=== PATIENT | male | born 1980 | race Caucasian/White ===

== ENCOUNTER 2016-12-31 21:30 | Emergency (ER) | payer BC ==
[2016-12-31] MEDS ORDERED: SULFAMETHOXAZOLE/TRIMETHOPRIM 800-160 MG TABLET PO ONE (23:06)
[2016-12-31] MEDS ORDERED: HYDROCODONE/ACETAMINOPHEN 5-325 MG TABLET PO ONE (23:07)
--- NOTE | 2016-12-31 23:07 | ER Document Report ---
ED Hand/Wrist Injury - General Mode of Arrival: Ambulatory Information source: Patient TRAVEL OUTSIDE OF THE [place] IN LAST 30 DAYS: No - HPI Patient complains to provider of: Possible infection to the right hand Injury to: Hand, Index finger Onset: Last week Where: Work Context: Other - see HPI <PORSCHE MONCADA - Last Filed: 12/31/16 23:01> <KATELYN KIMBLE - Last Filed: 12/31/16 23:33> - General Chief Complaint: Hand Injury Stated Complaint: HAND INJURY Notes: 36 year old male with no prior medical problems presents to the ED complaining of a possible right hand infection and pain that started over the past 2 days. Patient reports that he was removing fences last week and cut his right first digit with a kerri nail. Patient denies any arm pain or signs that the infection has spread. Patient reports that yesterday he was able to form a fist , but is unable to today. Patient has cleaned the infected site with hydrogen peroxide recently. Patient received a tetanus shot 1 year ago. (PORSCHE MONCADA) - Related Data Allergies/Adverse Reactions: tramadol [Tramadol] Allergy (Verified 03/14/16 14:32) tramadol HCl [From Ultram] Allergy (Verified 03/14/16 14:32) Past Medical History - General Information source: Patient - Social History Smoking Status: Current Every Day Smoker Chew tobacco use (# tins/day): No Frequency of alcohol use: Occasional Drug Abuse: None Family History: Reviewed & Not Pertinent Patient has suicidal ideation: No Patient has homicidal ideation: No Renal/ Medical History: Denies: Hx Peritoneal Dialysis Musculoskeltal Medical History: Reports Hx Musculoskeletal Trauma Past Surgical History: Reports: Hx Orthopedic Surgery - R thumb, left rotator cuff - Immunizations Immunizations up to date: Yes Hx Diphtheria, Pertussis, Tetanus Vaccination: Yes - 2003 <PORSCHE MONCADA - Last Filed: 12/31/16 23:01> Review of Systems - Review of Systems Constitutional: No symptoms reported EENT: No symptoms reported Cardiovascular: No symptoms reported Respiratory: No symptoms reported Gastrointestinal: No symptoms reported Genitourinary: No symptoms reported Male Genitourinary: No symptoms reported Musculoskeletal: No symptoms reported Skin: See HPI, Other - Right hand pain and swelling secondary to possible infection. Hematologic/Lymphatic: No symptoms reported Neurological/Psychological: No symptoms reported -: Yes All other systems reviewed and negative <PORSCHE MONCADA - Last Filed: 12/31/16 23:01> Physical Exam - General In distress: None - HEENT Eyes: No: Scleral icterus - Respiratory Respiratory status: No respiratory distress Breath sounds: Normal - Cardiovascular Rhythm: Regular Heart sounds: Normal auscultation Murmur: No Pulses: Normal: Radial Normal capillary refill: Yes - Extremities General upper extremity: Other - There is a small scab overlying the dorsal second metacarpal phalangeal joint. There is minimal erythema extending slightly proximal to the mid to distal metacarpal and definitely no fluctuance, only slightly "spongy" noted at the area of injury. There is no evidence of abscess and there is no drainage. Neurovascularly intact distally. The palm of the hand is unaffected. There is no significant pain with passive flexion and extension though he voids pain with flexion at that region. Hand: No evidence of human bite, No evidence of FB. No: Tendon deficit - Neurological Neuro grossly intact: Yes - Skin Skin Moisture: Dry Skin Color: Erythema - Erythema as noted above <KATELYN KIMBLE - Last Filed: 12/31/16 23:33> - Vital signs Vitals: Temp Pulse Resp BP Pulse Ox 98.4 F 92 16 118/75 95 12/31/16 21:37 12/31/16 21:37 12/31/16 21:37 12/31/16 21:37 12/31/16 21:37 Course <PORSCHE MONCADA - Last Filed: 12/31/16 23:01> <KATELYN KIMBLE - Last Filed: 12/31/16 23:33> - Re-evaluation Re-evalutation: 12/31/16 23:30 I discussed with the patient findings are consistent with a mild cellulitis at this point originating from a very superficial wound over the second dorsal joint. There is no infection involving the palmar aspect or flexor tendons. There is really only minimal warmth and redness and no abscess at this point. I instructed him to return in 48 hours for a recheck of his wound or to return sooner if he is worsening otherwise. He voices understanding. (KATELYN KIMBLE) - Vital Signs Vital signs: Temp Pulse Resp BP Pulse Ox 98.4 F 92 16 118/75 95 03/21/17 21:37 12/31/16 21:37 12/31/16 21:37 12/31/16 21:37 12/31/16 21:37 Discharge <PORSCHE MONCADA - Last Filed: 12/31/16 23:01> <HAKATELYN - Last Filed: 12/31/16 23:33> - Discharge Clinical Impression: Cellulitis of hand, right Condition: Good Disposition: HOME, SELF-CARE Instructions: Cellulitis ([facility]) Additional Instructions: Please ensure you return in the next 48 hours for a recheck of the hand. Return sooner if you are developing streaking redness up your arm, fever or worsening otherwise. Start the antibiotics in the morning. Cellulitis You have an infection of your skin and underlying soft tissues called cellulitis. This is due to bacteria, which can enter through any break in the skin, or even through an irritated hair follicle. Untreated, cellulitis will usually worsen. Antibiotics are required. Usually, warm packs or warm soaks, and elevation of the infected area are recommended. You should start getting better within 24 to 36 hours. Most infections respond quickly to the right medication. Follow-up care is important, however, to check for abscess (boil) formation, unsuspected foreign body, or resistant infection. If you develop fever, chills, or if the area of infection is becoming rapidly more swollen or painful, call the doctor at once. Prescriptions: Hydrocodone/Acetaminophen [[place] 5-325 mg Tablet] 1 tab PO Q4H PRN #7 tablet PRN Reason: Sulfamethoxazole/Trimethoprim [Sulfamethoxazole-Tmp Ds Tablet] 2 each PO BID # 28 tablet Forms: Special Work Note Scribe Documentation - Scribe Written by Filemon:: Filemon Torres, 12/31/2016 [id number] acting as scribe for :: Ha <PORSCHE MONCADA - Last Filed: 12/31/16 23:01>
[2017-01-01 00:13] VITALS: BP 110/66
== END 2016-12-31 23:50 | disposition home or self-care (01) ==
LOC: ER 21:30
DX: L03.113 Cellulitis of right upper limb (principal); F17.200 Nicotine dependence, unspecified, uncomplicated
CPT/HCPCS: 99283

== ENCOUNTER 2017-01-01 18:22 | Emergency (ER) | payer BC ==
[2017-01-01 18:41] VITALS: BP 100/61
--- NOTE | 2017-01-01 18:46 | ER Document Report ---
ED Medical Screen (RME) - General Stated Complaint: HAND SWELL Notes: 36 yo male c/o pain and swelling to right hand. pt was seen in ED last pm for same. Dx with cellulitis. pt was not able to get antbiotic filled today. c/o increased swelling to right dorsal hand over 1st MCPJ with hemorrhagic blister. + soft tissue swelling, erythema and warmth. TRAVEL OUTSIDE OF THE [place] IN LAST 30 DAYS: No - Related Data Allergies/Adverse Reactions: tramadol [Tramadol] Allergy (Verified 03/14/16 14:32) tramadol HCl [From Ultram] Allergy (Verified 03/14/16 14:32) Past Medical History Renal/ Medical History: Denies: Hx Peritoneal Dialysis Musculoskeltal Medical History: Reports Hx Musculoskeletal Trauma Past Surgical History: Reports: Hx Orthopedic Surgery - R thumb, left rotator cuff - Immunizations Immunizations up to date: Yes Hx Diphtheria, Pertussis, Tetanus Vaccination: Yes - 2003 Physical Exam - Vital signs Vitals: Temp Pulse Resp BP Pulse Ox 98.2 F 81 18 100/61 98 01/01/17 18:40 01/01/17 18:40 01/01/17 18:40 01/01/17 18:40 01/01/17 18:40 Course - Vital Signs Vital signs: Temp Pulse Resp BP Pulse Ox 98.2 F 81 18 100/61 98 01/01/17 18:40 01/01/17 18:40 01/01/17 18:40 01/01/17 18:40 01/01/17 18:40
[2017-01-01 19:13] LABS: ABSOLUTE BASOPHILS # (AUTO) 0.1 10^3/uL (0.0-0.2); ABSOLUTE EOSINOPHILS # (AUTO) 0.2 10^3/uL (0.0-0.6); ABSOLUTE NEUT (AUTO) 12.7 10^3/uL (1.7-8.2); BASOPHILS % (AUTO) 0.4 % (0-2); EOSINOPHILS % (AUTO) 1.2 % (0-6); HEMATOCRIT 38.2 % (37.9-51.0); HEMOGLOBIN 12.9 g/dL (13.5-17.0); HGB HCT DIFFERENCE 0.5; LYMPHOCYTES % (AUTO) 17.5 % (13-45); MEAN CORPUSCULAR HGB CONC 33.7 g/dL (32.0-36.0); MEAN CORPUSCULAR VOLUME 86 fl (80-97); RED BLOOD COUNT 4.43 10^6/uL (4.35-5.55); RED CELL DISTRIBUTION WIDTH 12.9 % (11.5-14.0); SEGMENTED NEUTROPHILS % (AUTO) 74.9 % (42-78)
== END 2017-01-01 20:18 | disposition left against medical advice (07) ==
LOC: ER 18:22
DX: L03.113 Cellulitis of right upper limb (principal); Z53.20 Procedure and treatment not carried out because of patient's decision for unspecified reasons; Z88.5 Allergy status to narcotic agent
CPT/HCPCS: 36415; 85025; 99281

== ENCOUNTER 2018-07-11 13:30 | Emergency (ER) | payer BC, OTHER ==
[2018-07-11 13:42] VITALS: BP 111/69
--- NOTE | 2018-07-11 14:02 | ER Document Report ---
ED General - General Chief Complaint: Back Pain Stated Complaint: BACK PAIN Time Seen by Provider: 07/11/18 14:01 Notes: Patient is a 37-year-old male that presents to the emergency department for chief complaint of low back pain. Patient reports that he had worsening of his back pain yesterday, described as aching sensation, that would radiate down both his legs, denied any associated numbness, weakness, tingling. He describes his pain at its worst is a 9 out of 10, is an aching sensation, that was constant and was worse with movements, he did receive 50 mcg of fentanyl by EMS which did help with his pain. Denies any urinary retention, stool incontinence, saddle anesthesias or paresthesias. He states that it did somewhat improve after taking naproxen, but he tried walking again today, and after he got home, the pain was so severe that he decided to call EMS to bring him to the emergency department. Today denies any radiation of his pain. He does have a history of degenerative disc disease, as well as scoliosis. Past Medical History: Degenerative disc disease, scoliosis Past Surgical History: Rotator cuff surgery Social History: Admits to smoking cigarettes daily, denies alcohol or illicit drug use. Family History: Reviewed and noncontributory for presenting illness Allergies: Reviewed, see documented allergy list. REVIEW OF SYSTEMS: Unless otherwise stated in this report the patient's positive and negative responses for review of systems for constitutional, eyes, ENT, cardiovascular, respiratory, gastrointestinal, neurological, genitourinary, musculoskeletal, and integumentary systems and related systems to the presenting problem are either as stated in the HPI or were not pertinent or were negative for the symptoms and/or complaints related to the presenting medical problem. PHYSICAL EXAMINATION: Vital signs reviewed, nursing noted reviewed. GENERAL: Well-appearing, well-nourished and in no acute distress. HEAD: Atraumatic, normocephalic. EYES: Eyes appear normal, extraocular movements intact, sclera anicteric, conjunctiva are normal. ENT: nares patent, oropharynx clear without exudates. Moist mucous membranes. NECK: Normal range of motion, supple without lymphadenopathy LUNGS: Breath sounds clear to auscultation bilaterally and equal. No wheezes rales or rhonchi. HEART: Regular rate and rhythm without murmurs ABDOMEN: Soft, nontender, normoactive bowel sounds. No rebound, guarding, or rigidity. No masses appreciated. EXTREMITIES: Nontender, good range of motion, no pitting or edema. Back: No midline tenderness to the thoracic or lumbar spine, there is paraspinal tenderness bilaterally in the lumbar spine, and appears to be muscle spasm in this area as well. NEUROLOGICAL: No focal neurological deficits. Moves all extremities spontaneously Motor and sensory grossly intact on exam. Excellent strength, in all extremities, +5/5 distally, patellar and Achilles tendons reflexes are +2/4 bilaterally. PSYCH: Normal mood, normal affect. SKIN: Warm, Dry, normal turgor, no rashes or lesions noted on exposed skin TRAVEL OUTSIDE OF THE [place] IN LAST 30 DAYS: No - Related Data Allergies/Adverse Reactions: tramadol [Tramadol] Allergy (Verified 03/14/16 14:32) tramadol HCl [From Ultram] Allergy (Verified 03/14/16 14:32) Past Medical History - Social History Smoking Status: Current Every Day Smoker Chew tobacco use (# tins/day): No Frequency of alcohol use: None Drug Abuse: None Family History: Reviewed & Not Pertinent Patient has suicidal ideation: No Patient has homicidal ideation: No Neurological Medical History: Reports: Hx Seizures Renal/ Medical History: Denies: Hx Peritoneal Dialysis Musculoskeletal Medical History: Reports Hx Musculoskeletal Trauma Psychiatric Medical History: Reports: Hx Attention Deficit Hyperactivity Disorder, Hx Depression - PTSD Past Surgical History: Reports: Hx Orthopedic Surgery - R thumb, left rotator cuff - Immunizations Immunizations up to date: Yes Hx Diphtheria, Pertussis, Tetanus Vaccination: Yes - 2003 Physical Exam - Vital signs Vitals: Temp Pulse Resp BP Pulse Ox 98.2 F 79 16 111/69 99 07/11/18 13:38 07/11/18 13:38 07/11/18 13:38 07/11/18 13:38 07/11/18 13:38 Course - Re-evaluation Re-evalutation: Patient seen and examined vital signs reviewed. Patint was evaluated and treated as appropriate for the patient's presenting symptoms and complaint, with consideration of any critical or life threatening conditions that may be associated with their obtained history and exam as noted above. Given that the patient did not have any acute injury, I do not feel imaging is needed at this time, he does not have any acute neurological findings or symptoms either. Patient was treated with IV fentanyl, Robaxin, and Toradol The patient was re-evaluated and was much improved Evaluation was most consistent with lumbar strain Plan of care was discussed with the patient at this point, after careful consideration I feel that that patient can be discharged from the emergency department, the patient was educated treatments and reasons to return to the emergency department based on their presumed diagnosis as noted above, they were advised to followup with a primary care physician in 2-3 days. Patient was agreeable to plan of care. *Note is created using voice recognition software and may contain spelling, syntax or grammatical errors. - Vital Signs Vital signs: Temp Pulse Resp BP Pulse Ox 98.2 F 79 16 111/69 99 07/11/18 13:38 07/11/18 13:38 07/11/18 13:38 07/11/18 13:38 07/11/18 13:38 Discharge - Discharge Clinical Impression: Back pain Qualifiers: Back pain location: low back pain Chronicity: unspecified Back pain laterality : bilateral Sciatica presence: without sciatica Qualified Code(s): M54.5 - Low back pain Disposition: HOME, SELF-CARE Instructions: Low Back Pain ([facility]) Additional Instructions: Please follow-up with orthopedics, take medications as prescribed. Prescriptions: Methocarbamol [Robaxin 750 mg Tablet] 750 mg PO Q8H PRN #15 tablet PRN Reason: low back pain Prednisone [Deltasone 20 mg Tablet] 2 tab PO DAILY 5 Days #10 tablet Referrals: LAURA SMITH MD [ACTIVE STAFF] - Follow up as needed (orthopedics )
[2018-07-11] MEDS ORDERED: METHOCARBAMOL INJ/PF 1000 MG/10 ML SDV IV ONE (14:19)
[2018-07-11] MEDS ORDERED: FENTANYL CITRATE INJ/PF 100 MCG/2 ML AMPUL IV ONE (14:19)
[2018-07-11] MEDS ORDERED: KETOROLAC TROMETHAMINE INJ/PF 30 MG/1 ML SDV IV ONE (14:19)
== END 2018-07-11 15:15 | disposition home or self-care (01) ==
LOC: ER 13:30
DX: M54.5 Low back pain (principal); F17.210 Nicotine dependence, cigarettes, uncomplicated; Z88.5 Allergy status to narcotic agent
CPT/HCPCS: 99283; 96374; 96375; J3010; J2800; J1885

== ENCOUNTER 2018-11-03 20:40 | Emergency (ER) | payer BC, OTHER ==
[2018-11-03] MEDS ORDERED: ASPIRIN 81 MG TABLET, CHEWABLE PO ONE (21:16)
[2018-11-03 21:36] VITALS: BP 120/82
[2018-11-03 21:44] LABS: ABSOLUTE BASOPHILS # (AUTO) 0.1 10^3/uL (0.0-0.2); ABSOLUTE EOSINOPHILS # (AUTO) 0.2 10^3/uL (0.0-0.6); ABSOLUTE LYMPHOCYTES (AUTO) 5.4 10^3/uL (0.5-4.7); ABSOLUTE MONOCYTES (AUTO) 0.7 10^3/uL (0.1-1.4); BASOPHILS % (AUTO) 0.6 % (0-2); EOSINOPHILS % (AUTO) 1.3 % (0-6); HEMATOCRIT 42.9 % (37.9-51.0); HEMOGLOBIN 14.5 g/dL (13.5-17.0); LYMPHOCYTES % (AUTO) 40.8 % (13-45); MEAN CORPUSCULAR HEMOGLOBIN 29.3 pg (27.0-33.4); MEAN CORPUSCULAR HGB CONC 33.9 g/dL (32.0-36.0); MEAN CORPUSCULAR VOLUME 87 fl (80-97); MONOCYTES % (AUTO) 5.2 % (3-13); PLATELET COUNT 330 10^3/uL (150-450); RED BLOOD COUNT 4.96 10^6/uL (4.35-5.55); RED CELL DISTRIBUTION WIDTH 13.2 % (11.5-14.0); SEGMENTED NEUTROPHILS % (AUTO) 52.1 % (42-78); TOTAL CELLS COUNTED % (AUTO) 100 %; WHITE BLOOD COUNT 13.3 10^3/uL (4.0-10.5)
[2018-11-03 22:06] LABS: ALANINE AMINOTRANSFERASE 18 U/L (21-72); ALBUMIN 4.6 g/dL (3.5-5.0); ALKALINE PHOSPHATASE 58 U/L (38-126); ANION GAP 7 (5-19); ASPARTATE AMINO TRANSFERASE 16 U/L (17-59); BILIRUBIN,DIRECT 0.2 mg/dL (0.0-0.4); BILIRUBIN,TOTAL 0.2 mg/dL (0.2-1.3); BLOOD UREA NITROGEN 12 mg/dL (7-20); CALCIUM 9.9 mg/dL (8.4-10.2); CARBON DIOXIDE 29 mmol/L (22-30); CHLORIDE 104 mmol/L (98-107); CREATINE KINASE 37 U/L (55-170); GLUCOSE 126 mg/dL (75-110); POTASSIUM 4.1 mmol/L (3.6-5.0); SODIUM 140.4 mmol/L (137-145)
[2018-11-03 22:18] LABS: CREATINE KINASE MB 0.42 ng/mL (<4.55)
[2018-11-03 22:20] LABS: TROPONIN I < 0.012 ng/mL
--- NOTE | 2018-11-03 22:27 | RADIOLOGY REPORT (SQ) ---
EXAM DESCRIPTION: XR CHEST 1 VIEW COMPLETED DATE/TME: 11/03/2018 21:16 CLINICAL HISTORY: 38 years, Male, CP COMPARISON: 11/06/2015 chest NUMBER OF VIEWS: 1 TECHNIQUE: Portable chest LIMITATIONS: None. FINDINGS: Heart size is normal. Lungs are clear. No pneumothorax IMPRESSION: Negative chest copyright 2011 [employer]- All Rights Reserved
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
[2018-11-03] MEDS ORDERED: KETOROLAC TROMETHAMINE INJ/PF 30 MG/1 ML SDV IV ONE (23:20)
[2018-11-03] MEDS ORDERED: HYDROCODONE/ACETAMINOPHEN 5-325 MG TABLET PO ONE (23:24)
--- NOTE | 2018-11-04 07:26 | EKG REPORT ---
SEVERITY:- OTHERWISE NORMAL ECG - SINUS RHYTHM RIGHT AXIS DEVIATION : Confirmed by: More Auguste MD 04-Nov-2018 07:25:35
== END 2018-11-04 | disposition home or self-care (01) ==
LOC: ER 20:40
DX: R07.89 Other chest pain (principal); R55 Syncope and collapse; V89.2XXD Person injured in unspecified motor-vehicle accident, traffic, subsequent encounter; F17.210 Nicotine dependence, cigarettes, uncomplicated
CPT/HCPCS: 93005; 99285; 96374; 36415; 82553; 82550; 85025; 80053; 84484; 71045; 93010; J1885

== ENCOUNTER 2018-11-19 18:24 | Emergency (ER) | payer OTHER ==
--- NOTE | 2018-11-19 19:03 | RADIOLOGY REPORT (SQ) ---
EXAM DESCRIPTION: HAND LEFT 3 VIEWS COMPLETED DATE/TIME: 11/19/2018 6:53 pm REASON FOR STUDY: injury COMPARISON: None. EXAM PARAMETERS: NUMBER OF VIEWS: Three views. TECHNIQUE: AP, lateral and oblique radiographic images acquired of the left hand. LIMITATIONS: None. FINDINGS: MINERALIZATION: Normal. BONES: No acute fracture or dislocation. No worrisome bone lesions. JOINTS: No effusions. SOFT TISSUES: No soft tissue swelling. No foreign body. OTHER: No other significant finding. IMPRESSION: NEGATIVE STUDY OF THE LEFT HAND. NO RADIOGRAPHIC EVIDENCE OF ACUTE INJURY. TECHNICAL DOCUMENTATION: JOB ID: [id number] [employer]- All Rights Reserved Reading location - IP/workstation name: [email or web address]
[2018-11-19] MEDS ORDERED: IBUPROFEN 800 MG TABLET PO ONE (19:27)
[2018-11-19] MEDS ORDERED: DIPH/PERTUSS(ACELL)/TETANUS VAC/PF 0.5 ML SYR (>=10YO) IM ONE (19:27)
--- NOTE | 2018-11-19 19:33 | ER Document Report ---
HPI - HPI Patient complains to provider of: Finger injury Time Seen by Provider: 11/19/18 19:26 Onset: Yesterday Onset/Duration: Sudden Quality of pain: Achy Pain Level: 5 Context: Patient states that he accidentally struck his left second finger with a sledgehammer yesterday. Patient is right-hand dominant. Patient complains of inability to flex the finger. Associated Symptoms: Other - Left second finger injury Exacerbated by: Movement Relieved by: Denies Similar symptoms previously: No Recently seen / treated by doctor: No - ROS ROS below otherwise negative: Yes Systems Reviewed and Negative: Yes All other systems reviewed and negative - REPRODUCTIVE Reproductive: DENIES: : - MUSCULOSKELETAL Musculoskeletal: REPORTS: Extremity pain, Swelling - DERM Skin Problems: Laceration Past Medical History - General Information source: Patient - Social History Smoking Status: Current Every Day Smoker Smoking Education Provided: Yes Frequency of alcohol use: None Drug Abuse: None Occupation: [employer] Family History: Reviewed & Not Pertinent Neurological Medical History: Reports: Hx Seizures - last seizure 10/20/2018, not on seizure medications Renal/ Medical History: Denies: Hx Peritoneal Dialysis Musculoskeletal Medical History: Reports Hx Musculoskeletal Trauma Psychiatric Medical History: Reports: Hx Attention Deficit Hyperactivity Disorder, Hx Depression - PTSD Past Surgical History: Reports: Hx Orthopedic Surgery - R thumb, left rotator cuff - Immunizations Immunizations up to date: Yes Hx Diphtheria, Pertussis, Tetanus Vaccination: Yes - 2004 Vertical Provider Document - CONSTITUTIONAL Agree With Documented VS: Yes Exam Limitations: No Limitations General Appearance: WD/WN, No Apparent Distress - INFECTION CONTROL TRAVEL OUTSIDE OF THE [place] IN LAST 30 DAYS: No - HEENT HEENT: Atraumatic, Normocephalic - NECK Neck: Normal Inspection, Supple - RESPIRATORY Respiratory: No Respiratory Distress - CARDIOVASCULAR Pulses: Normal: Radial - BACK Back: Normal Inspection - MUSCULOSKELETAL/EXTREMETIES Musculoskeletal/Extremeties: Tender - L 2nd finger tenderness to the middle and proximal phalanx and tenderness to the PIP joint, patient unable to flex PIP joint., Edema - NEURO Level of Consciousness: Awake, Alert, Appropriate Motor/Sensory: No Motor Deficit - DERM Integumentary: Warm, Dry, Laceration - Superficial avulsion laceration to dorsal aspect of left second finger Course - Vital Signs Vital signs: Temp Pulse Resp BP Pulse Ox 98.1 F 72 16 124/81 99 11/19/18 19:17 11/19/18 19:17 11/19/18 19:17 11/19/18 19:17 11/19/18 19:17 - Diagnostic Test Radiology reviewed: Image reviewed, Reports reviewed Procedures - Immobilization Left Finger 2nd digit Pre-Proc Neuro Vasc Exam: Normal Immobilizer type: Finger splint (Static) Performed by: PCT Post-Proc Neuro Vasc Exam: Normal Alignment checked and good: Yes Discharge - Discharge Clinical Impression: Skin avulsion Finger injury Qualifiers: Encounter type: initial encounter Laterality: left Qualified Code(s): S69.92XA - Unspecified injury of left wrist, hand and finger(s), initial encounter Finger sprain Qualifiers: Encounter type: initial encounter Finger: index finger Sprain of finger site: unspecified site Laterality: left Qualified Code(s): S63.611A - Unspecified sprain of left index finger, initial encounter Condition: Stable Disposition: HOME, SELF-CARE Instructions: Avulsion Injury ([facility]), Ice & Elevation ([facility]), Sprained Finger ([facility]), Temporary Splint ([facility]) Additional Instructions: Return immediately for any new or worsening symptoms Followup with your primary care provider, call tomorrow to make a followup appointment Follow-up with the hand surgeon for further evaluation, call tomorrow for an appointment Prescriptions: Naproxen [Naprosyn 250 Nmg Tablet] 1 tab PO BID #14 tablet Forms: Smoking Cessation Education Referrals: DAVE MEJIA DO [ACTIVE STAFF] - Follow up tomorrow
[2018-11-19 20:53] VITALS: BP 120/75
== END 2018-11-19 20:54 | disposition home or self-care (01) ==
LOC: ER 18:24
DX: S63.611A Unspecified sprain of left index finger, initial encounter (principal); S69.92XA Unspecified injury of left wrist, hand and finger(s), initial encounter; W22.8XXA Striking against or struck by other objects, initial encounter; F17.200 Nicotine dependence, unspecified, uncomplicated; Z23 Encounter for immunization
CPT/HCPCS: 90471; 90715; 99283

== ENCOUNTER 2020-06-27 09:18 | Emergency (ER) | payer SELFPAY ==
[2020-06-27 10:02] LABS: ABSOLUTE BASOPHILS # (AUTO) 0.1 10^3/uL (0.0-0.2); ABSOLUTE EOSINOPHILS # (AUTO) 0.2 10^3/uL (0.0-0.6); ABSOLUTE LYMPHOCYTES (AUTO) 3.4 10^3/uL (0.5-4.7); ABSOLUTE MONOCYTES (AUTO) 0.6 10^3/uL (0.1-1.4); ABSOLUTE NEUT (AUTO) 6.9 10^3/uL (1.7-8.2); BASOPHILS % (AUTO) 0.5 % (0-2); HEMATOCRIT 38.8 % (37.9-51.0); HEMOGLOBIN 13.5 g/dL (13.5-17.0); LYMPHOCYTES % (AUTO) 30.6 % (13-45); MEAN CORPUSCULAR HEMOGLOBIN 29.7 pg (27.0-33.4); MEAN CORPUSCULAR HGB CONC 34.8 g/dL (32.0-36.0); MEAN CORPUSCULAR VOLUME 85 fl (80-97); MONOCYTES % (AUTO) 5.2 % (3-13); PLATELET COUNT 323 10^3/uL (150-450); RED BLOOD COUNT 4.54 10^6/uL (4.35-5.55); RED CELL DISTRIBUTION WIDTH 12.8 % (11.5-14.0); SEGMENTED NEUTROPHILS % (AUTO) 61.7 % (42-78); TOTAL CELLS COUNTED % (AUTO) 100 %; WHITE BLOOD COUNT 11.2 10^3/uL (4.0-10.5)
[2020-06-27 10:20] LABS: ALBUMIN 4.5 g/dL (3.5-5.0); ALKALINE PHOSPHATASE 62 U/L (38-126); ANION GAP 6 (5-19); ASPARTATE AMINO TRANSFERASE 23 U/L (17-59); BILIRUBIN,DIRECT 0.3 mg/dL (0.0-0.4); BILIRUBIN,TOTAL 0.6 mg/dL (0.2-1.3); BLOOD UREA NITROGEN 13 mg/dL (7-20); CALCIUM 9.7 mg/dL (8.4-10.2); CARBON DIOXIDE 27 mmol/L (22-30); CHLORIDE 107 mmol/L (98-107); GLUCOSE 110 mg/dL (75-110); POTASSIUM 4.4 mmol/L (3.6-5.0)
--- NOTE | 2020-06-27 13:56 | RADIOLOGY REPORT (SQ) ---
EXAM DESCRIPTION: CT ABD/PELVIS WITH IV ONLY IMAGES COMPLETED DATE/TIME: 06/27/2020 1:30 pm REASON FOR STUDY: left flank pain COMPARISON: None. TECHNIQUE: CT scan of the abdomen and pelvis performed using helical scanning technique with dynamic intravenous contrast injection. No oral contrast. Images reviewed with lung, soft tissue, and bone windows. Reconstructed coronal and sagittal MPR images reviewed. Delayed images for evaluation of the urinary system also acquired. All images stored on PACS. All CT scanners at this facility use dose modulation, iterative reconstruction, and/or weight based d osing when appropriate to reduce radiation dose to as low as reasonably achievable (ALARA). [facility]: Dose Right [facility]: CareDose [facility]: Dose Right [facility]: Teradose 4D [facility]: [employer] CONTRAST TYPE AND DOSE: contrast/concentration: Isovue 350.00 mmol/ml; Total Contrast Delivered: 90. 0 ml; Total Saline Delivered: 70.0 ml RENAL FUNCTION: GFR > 60. RADIATION DOSE: CT Rad equipment meets quality standard of care and radiation dose reduction techniq ues were employed. CTDIvol: 5.6 - 7.6 mGy. DLP: 778 mGy-cm.. LIMITATIONS: None. FINDINGS: LOWER CHEST: No significant findings. No nodules or infiltrates. LIVER: Normal size. No masses. No dilated ducts. SPLEEN: Normal size. No focal lesions. PANCREAS: No masses. No significant calcifications. No adjacent inflammation or peripancreatic fluid collections. Pancreatic duct not dilated. GALLBLADDER: No identified stones by CT criteria. No inflammatory changes to suggest cholecystitis. ADRENAL GLANDS: No significant masses or asymmetry. RIGHT KIDNEY AND URETER: No solid masses. No significant calcifications. No hydronephrosis or hyd roureter. LEFT KIDNEY AND URETER: No solid masses. No significant calcifications. No hydronephrosis or hydr oureter. AORTA AND VESSELS: No aneurysm. No dissection. Renal arteries, SMA, celiac without stenosis. RETROPERITONEUM: No retroperitoneal adenopathy, hemorrhage or masses. BOWEL AND PERITONEAL CAVITY: No masses or inflammatory changes. No free fluid or peritoneal masses. APPENDIX: Normal. PELVIS: No mass. No free fluid. Normal bladder. ABDOMINAL WALL: No masses. No hernias. BONES: No significant or acute findings. OTHER: No other significant finding. IMPRESSION: NO SIGNIFICANT OR ACUTE FINDING IN THE ABDOMEN OR PELVIS ON CT SCAN WITH IV CONTRAST. TECHNICAL DOCUMENTATION: JOB ID: [id number] Quality ID # [id number]: Final reports with documentation of one or more dose reduction techniques (e.g., Au tomated exposure control, adjustment of the mA and/or kV according to patient size, use of iterative reconstruction technique) 2010 [employer]- All Rights Reserved Reading location - IP/workstation name: [email or web address]OSPITALDavid
[2020-06-27 14:01] LABS: APPEARANCE,URINE CLEAR; BILIRUBIN,URINE NEGATIVE (NEGATIVE); COLOR,URINE YELLOW; GLUCOSE, URINE NEGATIVE (NEGATIVE); KETONES,URINE NEGATIVE (NEGATIVE); LEUKOCYTE ESTERASE,URINE NEGATIVE (NEGATIVE); NITRITE,URINE NEGATIVE (NEGATIVE); PROTEIN,URINE NEGATIVE (NEGATIVE)
--- NOTE | 2020-06-27 14:45 | ER Document Report ---
ED General - General Chief Complaint: Flank Pain Stated Complaint: BACK/FLANK PAIN Time Seen by Provider: 06/27/20 10:53 Information source: Patient TRAVEL OUTSIDE OF THE [place] IN LAST 30 DAYS: No - HPI Notes: Patient presents complaint of severe left flank pain. He states he was walking across his bedroom when he developed the sudden onset of severe flank pain that made him drop to his knees. Patient states he had this pain several days ago and went to another hospital. At that time he states he had an evaluation and was told "they could not find anything." Patient states the same symptoms happened again today. He states he does not get short of breath or nauseous. The nursing notes were mentioning that he had some trouble urinating but he denies any trouble urinating to me. He states he was able to urinate normally and without problem. He denies any new numbness tingling or abnormal sensations anywhere including around the testicles and perineum. He denies any problems with bowel movements. He denies any low back pain is mainly left flank pain and left lateral upper abdomen and lower chest pain. No cough cold or congestion. No known history of trauma. - Related Data Allergies/Adverse Reactions: tramadol [Tramadol] Allergy (Verified 06/27/20 09:32) tramadol HCl [From Ultram] Allergy (Verified 06/27/20 09:32) Past Medical History - General Information source: Patient - Social History Smoking Status: Current Every Day Smoker Chew tobacco use (# tins/day): No Frequency of alcohol use: None Drug Abuse: None Family History: Reviewed & Not Pertinent Patient has homicidal ideation: No Neurological Medical History: Reports: Hx Seizures - last seizure 10/20/2018, not on seizure medications Renal/ Medical History: Denies: Hx Peritoneal Dialysis Musculoskeletal Medical History: Reports Hx Musculoskeletal Trauma Psychiatric Medical History: Reports: Hx Attention Deficit Hyperactivity Disorder, Hx Depression - PTSD Past Surgical History: Reports: Hx Orthopedic Surgery - R thumb, left rotator cuff - Immunizations Immunizations up to date: Yes Hx Diphtheria, Pertussis, Tetanus Vaccination: Yes - 2003 Review of Systems - Review of Systems Constitutional: denies: Chills, Fever Cardiovascular: Chest pain - Left lateral lower chest. denies: Palpitations Respiratory: denies: Cough, Short of breath -: Yes All other systems reviewed and negative Physical Exam - Vital signs Vitals: Temp Pulse Resp BP Pulse Ox 98.0 F 97 24 H 143/68 H 97 06/27/20 09:27 06/27/20 09:27 06/27/20 09:27 06/27/20 09:27 06/27/20 09:27 Interpretation: Normal - General General appearance: Appears well, Alert - HEENT Head: Normocephalic, Atraumatic Eyes: Normal Pupils: PERRL - Respiratory Respiratory status: No respiratory distress Chest status: Tender - Patient's left lateral chest and left abdomen is tender to palpation there is no crepitus. There is no abnormalities on visual inspection. Breath sounds: Normal Chest palpation: Normal - Cardiovascular Rhythm: Regular Heart sounds: Normal auscultation Murmur: No - Abdominal Inspection: Normal Distension: No distension Bowel sounds: Normal Tenderness: Nontender Organomegaly: No organomegaly - Back Back: Normal, Nontender - Extremities General upper extremity: Normal inspection, Nontender, Normal color, Normal ROM, Normal temperature General lower extremity: Normal inspection, Nontender, Normal color, Normal ROM, Normal temperature, Normal weight bearing. No: Yariel's sign - Neurological Neuro grossly intact: Yes Cognition: Normal Orientation: AAOx4 [place] Coma Scale Eye Opening: Spontaneous [place] Coma Scale Verbal: Oriented [place] Coma Scale Motor: Obeys Commands [place] Coma Scale Total: 15 Speech: Normal Motor strength normal: LUE, RUE, LLE, RLE Sensory: Normal - Psychological Associated symptoms: Normal affect, Normal mood - Skin Skin Temperature: Warm Skin Moisture: Dry Skin Color: Normal Course - Re-evaluation Re-evalutation: 06/27/20 14:41 Patient presents with the sudden onset of left flank pain. Possibly this could be a kidney stone but he does not have significant blood in the urine nor does he have any evidence of this on CT scan. He has no evidence of any type of mass or abnormality that would explain the pain on CT scan. There is also possible that the patient may have some pleurisy. He does have a mildly elevated white blood cell count. The presentation is not consistent with cardiac. It is consistent with a possible musculoskeletal cause. At this time I do not feel that further evaluation would be beneficial to the patient, therefore I will discharge patient home to follow-up with primary care physician and with pain medication. - Vital Signs Vital signs: Temp Pulse Resp BP Pulse Ox 98.0 F 97 24 H 143/68 H 97 06/27/20 09:34 06/27/20 09:27 06/27/20 09:27 06/27/20 09:27 06/27/20 09:27 - Laboratory Result Diagrams: 06/27/20 09:45 06/27/20 09:45 Laboratory results interpreted by me: 06/27/20 06/27/20 09:45 13:38 WBC 11.2 H Urine Urobilinogen 2.0 H - Diagnostic Test Radiology reviewed: Image reviewed, Reports reviewed Discharge - Discharge Clinical Impression: Pleurisy Condition: Stable Disposition: HOME, SELF-CARE Instructions: Pleurisy ([facility]) Additional Instructions: Please call a primary doctor as soon as possible to schedule follow up Prescriptions: Indomethacin [Indocin 50 Mg Capsule] 50 mg PO TID PRN 3 Days #9 capsule PRN Reason: For Pain Forms: Return to Work Referrals: [facility] [Provider Group] - Follow up in 3-5 days
[2020-06-27 16:35] VITALS: BP 108/65
== END 2020-06-27 16:33 | disposition left against medical advice (07) ==
LOC: ER 09:18
DX: R09.1 Pleurisy (principal); R10.9 Unspecified abdominal pain; R10.819 Abdominal tenderness, unspecified site; R20.0 Anesthesia of skin; D72.829 Elevated white blood cell count, unspecified; F17.200 Nicotine dependence, unspecified, uncomplicated; Z88.6 Allergy status to analgesic agent; Z53.29 Procedure and treatment not carried out because of patient's decision for other reasons
CPT/HCPCS: 36415; 74177; 80053; 81001; 83690; 85025; 99285

== ENCOUNTER → 2020-10-04 | Outpatient (CLI) | payer MEDICAID ==
--- NOTE | 2020-10-04 10:15 | RADIOLOGY REPORT (SQ) ---
EXAM DESCRIPTION: L SPINE WHOLE IMAGES COMPLETED DATE/TIME: 10/04/2020 9:55 am REASON FOR STUDY: (M54.5)LOW BACK PAIN M54.5 LOW BACK PAIN COMPARISON: 12/19/2014 NUMBER OF VIEWS: Five views including obliques. TECHNIQUE: AP, lateral, oblique, and sacral radiographic images acquired of the lumbar spine. LIMITATIONS: None. FINDINGS: MINERALIZATION: Normal. SEGMENTATION: Normal. No transitional anatomy. ALIGNMENT: Normal. VERTEBRAE: Maintained height. No fracture or worrisome bone lesion. DISCS: Mild narrowing suggested. No significant osteophytes or end plate irregularity. POSTERIOR ELEMENTS: Pedicles and facets are intact. No pars defect or posterior arch defects. Spina bifida occulta at S1, normal anatomic variant. HARDWARE: None in the spine. PARASPINAL SOFT TISSUES: Normal. PELVIS: Intact as visualized. No fractures or worrisome bone lesions. SI joints intact. OTHER: No other significant finding. IMPRESSION: 1. Mild disc space narrowing suggested at L5-S1. 2. No acute osseous findings. TECHNICAL DOCUMENTATION: JOB ID: [id number] [employer]- All Rights Reserved Reading location - IP/workstation name: [email or web address]
== END ==
LOC: RAD 09:27
PROVIDERS: ATTEND Family Medicine
DX: M54.5 Low back pain (principal)
CPT/HCPCS: 72110